=== PATIENT | female | born 1970 | race Caucasian/White ===

== ENCOUNTER 2016-12-01 07:39 | Day surgery (SDC) | END 2016-12-01 14:05 | disposition home or self-care (01) | DX: C50.912 Malignant neoplasm of unspecified site of left female breast (principal); E11.9 Type 2 diabetes mellitus without complications; I10 Essential (primary) hypertension; E78.5 Hyperlipidemia, unspecified | CPT/HCPCS: 36561; 76942; 82962; 93306; C1788; J0690; J1644; J2250; J3010; J7040; Z7610 ==

== ENCOUNTER 2017-01-31 10:26 | Emergency (ER) | payer MEDICAID ==
[~2017-01-31] VITALS: Ht 157.5 cm; Wt 63.0 kg
[~2017-01-31 10:26] MED LIST: FER325 PO; LISI10TA2 PO; METF500T4 PO; SIMV5TAB50 PO
[2017-01-31 10:27] VITALS: Ht 157.5 cm; Wt 63.0 kg
[2017-01-31] MEDS ORDERED: SOD CHLORIDE 0.9% 1,000 ML IV STA (10:37)
[2017-01-31] MEDS ORDERED: ONDANSETRON 4 MG INJ IV STA (10:37)
[2017-01-31 10:50] LABS: ADD SCAN DIFF NO
[2017-01-31 11:00] LABS: ABNORMAL IP MESSAGE 1; BASOPHILS % 0.1 % (0.0-2.0); HEMATOCRIT 34.2 % (37.0-47.0); HEMOGLOBIN 10.6 g/dl (12.0-16.0); LYMPHOCYTES # 1.5 10^3/ul (0.8-2.9); MEAN CORPUSCULAR HEMOGLOBIN 24.3 pg (29.0-33.0); MEAN CORPUSCULAR VOLUME 78.3 fl (82.0-101.0); MEAN PLATELET VOLUME 8.5 fl (7.4-10.4); MONOCYTE # 0.7 10^3/ul (0.3-0.9); MONOCYTES % 8.5 % (0.0-11.0); NEUTROPHIL # 6.1 10^3/ul (1.6-7.5); NEUTROPHILS % 71.2 % (39.0-77.0); PLATELET COUNT 172 10^3/UL (140-415); RED BLOOD COUNT 4.37 10^6/ul (4.20-5.40); RED CELL DISTRIBUTION WIDTH 25.6 % (11.5-14.5); WHITE BLOOD COUNT 8.6 10^3/ul (4.8-10.8)
[2017-01-31 11:15] LABS: ANION GAP 23 (8-16); BLOOD UREA NITROGEN 5 mg/dl (7-20); CARBON DIOXIDE 19 mmol/L (21-31); CHLORIDE 102 mmol/L (97-110); CREATININE 1.02 mg/dl (0.44-1.00); GLUCOSE 162 mg/dl (70-220); POTASSIUM 3.4 mmol/L (3.5-5.1); SODIUM 141 mmol/L (135-144)
[2017-01-31] MEDS ORDERED: POTASSIUM CHLORIDE (SR) 20 MEQ TAB PO STA (11:23)
[2017-01-31 11:31] LABS: TROPONIN-I < 0.012 ng/ml (0.00-0.12)
--- NOTE | 2017-01-31 11:47 | RADRPT ---
PROCEDURE: XR Chest. CLINICAL INDICATION: chest pain, syncope TECHNIQUE: Single frontal view of the chest was obtained COMPARISON: None FINDINGS: The heart and mediastinum are within normal limits. There is a right chest wall port in place. There is mild elevation of the right diaphragm. The lungs are clear. There is no pleural effusion or pneumothorax. RPTAT: AA IMPRESSION: No acute disease. .Alexis Humphreys MD, MD Date Time Electronically viewed and signed by .Alexis Humphreys MD, on 01/31/2017 11:46 .S/
--- NOTE | 2017-01-31 12:05 | ERD ---
ER Documentation Chief Complaint Date/Time DATE: 01/31/17 TIME: 12:05 Chief Complaint syncopial episode before getting chemotherapy HPI Patient is a 46-year-old female with breast cancer, diabetes, and hypertension who presents with a syncopal event. The patient was brought in by ambulance. The daughter says that her eyes rolled in the back of her head while she was sitting waiting to see the doctor. She felt cold all over. She was going to Dr. Alonso's office for a follow-up visit. She is not complaining of any pain. She has never had this before. She had chemotherapy last on January 17. She denies any bleeding. She had vomiting last night as well as diarrhea. Upon review of old medical records this is the patient's first visit to the emergency department. ROS All systems reviewed and are negative except as per history of present illness. Medications Home Meds Reported Medications Ferrous Sulfate* (Ferrous Sulfate*) 325 Mg Tabec, 325 MG PO BID, TAB 12/01/16 Simvastatin* (Simvastatin*) 5 Mg Tablet, 10 MG PO QHS, #30 TAB 12/01/16 Lisinopril* (Lisinopril*) 10 Mg Tablet, 10 MG PO DAILY, #30 TAB 12/01/16 Metformin Hcl* (Metformin Hcl*) 500 Mg Tablet, 500 MG PO WITH BREAKFAST DINNE, # 30 TAB 12/01/16 Allergies Allergies: Coded Allergies: No Known Allergy (Unverified , 12/01/16) PMhx/Soc History of Surgery: Yes (CHOLECYSTECTOMY) Anesthesia Reaction: No Hx Neurological Disorder: No Hx Respiratory Disorders: No Hx Cardiac Disorders: Yes (HTN) Hx Psychiatric Problems: No Hx Miscellaneous Medical Probl: Yes ( ANEMIA, LT BREAST CA ON CHEMO SINCE November ) Hx Alcohol Use: No Hx Substance Use: No Hx Tobacco Use: No Smoking Status: Never smoker FmHx Family History: diabetes Physical Exam Vitals Vital Signs Date Time Temp Pulse Resp B/P Pulse Ox O2 Delivery O2 Flow Rate FiO2 01/31/17 12:38 97.5 85 18 118/79 99 Room Air 01/31/17 10:27 97.5 93 18 117/82 97 Physical Exam Const: No acute distress Head: Atraumatic Eyes: Normal Conjunctiva ENT: Normal External Ears, Nose and Mouth. Neck: Full range of motion..~ No meningismus. Resp: Clear to auscultation bilaterally Cardio: Regular rate and rhythm, no murmurs Abd: Soft, non tender, non distended. Normal bowel sounds Skin: No petechiae or rashes Back: No midline or flank tenderness Ext: No cyanosis, or edema Neur: Awake and alert Psych: Normal Mood and Affect Result Diagram: 01/31/17 1040 01/31/17 1040 Results 24 hrs Laboratory Tests Test 01/31/17 10:40 01/31/17 11:07 White Blood Count 8.610^3/ul Red Blood Count 4.3710^6/ul Hemoglobin 10.6g/dl Hematocrit 34.2% Mean Corpuscular Volume 78.3fl Mean Corpuscular Hemoglobin 24.3pg Mean Corpuscular Hemoglobin Concent 31.0g/dl Red Cell Distribution Width 25.6% Platelet Count 18976^3/UL Mean Platelet Volume 8.5fl Neutrophils % 71.2% Lymphocytes % 17.0% Monocytes % 8.5% Eosinophils % 0.0% Basophils % 0.1% Nucleated Red Blood Cells % 0.0/100WBC Neutrophils # 6.110^3/ul Lymphocytes # 1.510^3/ul Monocytes # 0.710^3/ul Eosinophils # 0.010^3/ul Basophils # 0.010^3/ul Nucleated Red Blood Cells # 0.010^3/ul Sodium Level 141mmol/L Potassium Level 3.4mmol/L Chloride Level 102mmol/L Carbon Dioxide Level 19mmol/L Anion Gap 23 Blood Urea Nitrogen 5mg/dl Creatinine 1.02mg/dl Glucose Level 162mg/dl Calcium Level 10.0mg/dl Troponin I < 0.012ng/ml Bedside Glucose 123mg/dL Current Medications Medications (Trade) Dose Ordered Sig/Azael Route PRN Reason Start Time Stop Time Status Last Admin Dose Admin Sodium Chloride (NS) 1,000 ml @ 1,000 mls/hr Q1H STAT IV 01/31/17 10:37 01/31/17 11:36 DC 01/31/17 10:47 Ondansetron HCl (Zofran Inj) 4 mg ONCE STAT IV 01/31/17 10:37 01/31/17 10:38 DC 01/31/17 10:47 Potassium Chloride (Klor-Con 20) 40 meq ONCE STAT PO 01/31/17 11:23 01/31/17 11:24 DC 01/31/17 11:29 Procedures/MDM EKG read by me: Rate/Rhythm: Regular rate and rhythm at a rate of 99 Intervals: Normal Impression: No evidence of ischemia or arrhythmia Chest x-ray negative per radiology. Patient is a 46-year-old female with hypertension, diabetes, and breast cancer who presents with a syncopal event. The patient has anemia with a hemoglobin of 10.6 but does not require transfusion. The patient has mild hypokalemia with a potassium of 3.4. I believe the patient is dehydrated she was given 1 L of normal saline for fluid resuscitation. She was also given Zofran. There is no sign of ischemia or arrhythmia. I doubt serious cardiac arrhythmia such as ventricular fibrillation or ventricular tachycardia. I doubt significant blood loss. I believe outpatient management is appropriate. She will need to follow- up closely with her primary doctor within 24-48 hours. She can return for any worsening symptoms. Departure Diagnosis: Primary Impression: Hypokalemia Additional Impression: Syncope Syncope type: unspecified Qualified Code: R55 - Syncope, unspecified syncope type Condition: Fair Patient Instructions: Syncope, Unk Cause Referrals: Your doctor Additional Instructions: Llame al doctor MAANA y dannielle gisela MAGGIE PARA DENTRO DE 1-2 LARKIN.Dgale a la secretaria que nosotros le instruimos hacer esta maggie.Avise o llame si ly condicin se empeora antes de la maggie. Regresa aqui si peor o no mejor. CECE SALCEDO MD January 31, 2017 12:05
[2017-01-31 12:38] VITALS: BP 118/79; PULSE 85; RESP 18; TEMP 97.5
== END 2017-01-31 13:18 | disposition home or self-care (01) ==
LOC: E/R 10:26
DX: E87.6 Hypokalemia (principal); C50.912 Malignant neoplasm of unspecified site of left female breast; I10 Essential (primary) hypertension; E11.9 Type 2 diabetes mellitus without complications; Z79.84 Long term (current) use of oral hypoglycemic drugs
CPT/HCPCS: 36415; 71010; 80048; 82962; 84484; 85025; 93005; 96361; 96374; J2405; J7030; Z7502; Z7610

== ENCOUNTER 2017-05-04 08:08 | Inpatient (IN) | payer MEDICAID, OTHER ==
[2017-05-03 14:24] VITALS: Ht 152.4 cm; Wt 73.0 kg
[~2017-05-04] VITALS: Ht 152.4 cm; Wt 73.0 kg
[2017-05-04] VITALS (27 sets, daily range): BP systolic 90–122; BP diastolic 55–69; PULSE 75–98; RESP 18–27
[2017-05-04] MEDS ORDERED: SIMV10TA PO (10:16)
[2017-05-04 11:33] LABS: BASOPHILS % 0.3 % (0.0-2.0); EOSINOPHILS # 0.1 10^3/ul (0.0-0.5); EOSINOPHILS % 1.5 % (0.0-7.0); LYMPHOCYTES # 2.6 10^3/ul (0.8-2.9); MEAN CORPUSCULAR HEMOGLOBIN 28.4 pg (29.0-33.0); MEAN CORPUSCULAR HGB CONC 32.2 g/dl (32.0-37.0); MONOCYTE # 0.6 10^3/ul (0.3-0.9); NEUTROPHILS % 51.8 % (39.0-77.0); RED CELL DISTRIBUTION WIDTH 15.4 % (11.5-14.5)
[2017-05-04 11:35] LABS: HOLD TRANSMISSIONS 1; MEAN PLATELET VOLUME 11.2 fl (7.4-10.4); POSITIVE DIFF @See below
[2017-05-04 11:40] LABS: RED BLOOD COUNT 3.09 10^6/ul (4.20-5.40); WHITE BLOOD COUNT 6.3 10^3/ul (4.8-10.8)
[2017-05-04 11:41] LABS: HEMATOCRIT 27.1 % (37.0-47.0); HEMOGLOBIN 8.8 g/dl (12.0-16.0); MEAN CORPUSCULAR VOLUME 87.7 fl (82.0-101.0); PLATELET COUNT 239 10^3/UL (140-415)
[2017-05-04 11:46] LABS: INR 0.94; PROTIME 12.6 Sec (12.2-14.2)
[2017-05-04 11:47] LABS: PARTIAL THROMBOPLASTIN TIME 30.6 Sec (25.0-35.0)
[2017-05-04 11:50] LABS: ALBUMIN 4.5 g/dl (3.3-4.9); ALBUMIN/GLOBULIN RATIO 1.04; BILIRUBIN,INDIRECT 0.3 mg/dl (0-1.1); BILIRUBIN,TOTAL 0.3 mg/dl (0.2-1.3); TOTAL PROTEIN 8.8 g/dl (6.1-8.1)
[2017-05-04 11:52] LABS: CALCIUM 9.8 mg/dl (8.4-10.2); CREATININE 0.86 mg/dl (0.44-1.00); POTASSIUM 4.6 mmol/L (3.5-5.1)
[2017-05-04] MEDS ORDERED: SOD CHLORIDE 0.9% 1,000 ML IV ONE (13:00)
[2017-05-04] MEDS ORDERED: CEFAZOLIN 2 GM/50 ML (PMX) 50 ML IVPB ONE (13:30)
[2017-05-04] MEDS ORDERED: ONDANSETRON 4 MG INJ ONE (15:38)
[2017-05-04] MEDS ORDERED: CEFAZOLIN 1 GM INJ ONE (15:38)
[2017-05-04] MEDS ORDERED: LIDOCAINE 2% (SDV) 5 ML INJ ONE (15:38)
[2017-05-04] MEDS ORDERED: PROPOFOL 20 ML ONE (15:38)
[2017-05-04] MEDS ORDERED: METOCLOPRAMIDE 10 MG INJ ONE (15:38)
[2017-05-04] MEDS ORDERED: MEPERIDINE 100 MG INJ ONE (15:40)
[2017-05-04] MEDS ORDERED: LABETALOL HCL 20MG INJ IV PRN (16:00)
[2017-05-04] MEDS ORDERED: HYDROmorphONE (0.2 MG/ML) 10ML SYG IV PRN ×2 (16:00)
[2017-05-04] MEDS ORDERED: EPHEDrine SULFATE 50 MG/5 ML SYG IV PRN (16:00)
[2017-05-04] MEDS ORDERED: METOCLOPRAMIDE 10 MG INJ IV PRN ×2 (16:00→22:00)
[2017-05-04] MEDS ORDERED: OXYCODONE/ACETAMINOPHEN (5/325) TAB PO PRN ×2 (16:00)
[2017-05-04] MEDS ORDERED: MEPERIDINE 25 MG INJ IV PRN (16:00)
[2017-05-04] MEDS ORDERED: FENTAnyl 50 MCG/ML VIAL IV PRN ×3 (16:00)
[2017-05-04] MEDS ORDERED: MIDAZOLAM 1 MG/ML 2 ML INJ IV PRN (16:00)
[2017-05-04] MEDS ORDERED: ONDANSETRON 4 MG INJ IV PRN ×3 (16:00→18:00)
[2017-05-04] MEDS ORDERED: DIPHENHYDRAMINE 50 MG INJ IV PRN (16:00)
[2017-05-04] MEDS ORDERED: hydrALAzine 20 MG INJ IV PRN (16:00)
[2017-05-04] MEDS ORDERED: ISOSULFAN BLUE 1% 5 ML INJ SC ONE ×2 (16:01→16:44)
[2017-05-04] MEDS ORDERED: ACETAMINOPHEN 1000MG/100ML IV 100 ML IVPB PRN (16:30)
--- NOTE | 2017-05-04 17:21 | OPR ---
Date/Time of Note Date/Time of Note DATE: 05/04/17 TIME: 17:18 Operative Report Preoperative Diagnosis Invasive cancer left breast Postoperative Diagnosis Same Operation/Procedure Performed Left needle directed partial mastectomy and axillary dissection utilizing sentinel lymph node technique Surgeon: KYLE BEAVERS MD funeral assistant: ESTEFANI QUINTERO MD Anesthesia Type: general Estimated Blood Loss: 10 - 50 ml's Transfusion Required: no Specimens Left breast partial mastectomy specimen and sentinel lymph node with additional axillary lymph nodes Grafts/Implants: none Complications: no KYLE BEAVERS MD May 04, 2017 17:21
[2017-05-04] MEDS: INSULIN ASPART [NOVOLOG] 3 ML PEN SC SCH ×2 (18:00→20:35)
[2017-05-04] MEDS: D5W-0.45 NACL + KCL 20 MEQ 1,000 ML IV SCH (18:05)
[2017-05-04] MEDS: HYDROmorphONE (0.2 MG/ML) 10ML SYG IV PRN ×2 (18:14→18:29)
[2017-05-04] MEDS ORDERED: GLUCOSE GEL 15 GRAM TUBE PO PRN ×2 (18:30)
[2017-05-04] MEDS ORDERED: GLUCOSE GEL 15 GRAM TUBE BUCCAL PRN (18:30)
[2017-05-04] MEDS ORDERED: GLUCAGON 1 MG INJ IM PRN (18:30)
[2017-05-04] MEDS ORDERED: DEXTROSE 50% 50 ML SYRINGE IV PRN ×2 (18:30)
--- NOTE | 2017-05-04 18:38 | OPR ---
DATE OF OPERATION: 05/04/2017 PREOPERATIVE DIAGNOSIS: Invasive, cancer left breast. POSTOPERATIVE DIAGNOSIS: Invasive cancer, left breast. OPERATION PERFORMED: Needle-directed left partial mastectomy and axillary dissection utilizing sentinel lymph node technique. ANESTHESIA: General. ANESTHESIOLOGIST: Roni Tavarez MD SURGEON: Mac Alonso MD GORING CUTTER: Dr. Rogers. INDICATIONS FOR PROCEDURE: Patient is a 46-year-old female who underwent surveillance mammography and was found to have a 3 cm poorly-differentiated cancer located at the 1 o'clock location. Biopsy confirmed the diagnosis. She was also found to be HER2 positive, therefore she was referred for neoadjuvant chemotherapy. She received neoadjuvant chemotherapy and had a good response. She was counseled as to the need for surgery and the fact that she was a candidate for breast conservation surgery. She consented and was scheduled for surgery. OPERATIVE PROCEDURE: On the morning of surgery, patient was brought to [facility] where she underwent localization of the lesion performed by attending radiologist, Dr. Garza .. Subsequently, she was brought to the operating theater and placed under general anesthesia. The left breast and axillary regions were prepped and draped in usual sterile fashion. Approximately 4 mL of 1 percent Lymphazurin blue dye was then injected peritumorally. The breast was gently massaged for 12 minutes. At this point, a 4 cm incision was made in the left axillary hairline. Subcutaneous tissue was dissected with cautery down through the clavipectoral fascia. A dye-stained lymphatic was identified and traced to the sentinel node. There were several matted nodes in this area. Therefore, Dr. Alonso made a decision to perform level 1 dissection. With blunt dissection along the chest wall, the long thoracic nerve was identified and kept out of harm's way. More superiorly, the axillary vein was identified and kept out of harm's way. As the vein was dissected from medial to lateral, thoracodorsal neurovascular bundle was identified and kept out of harm's way. Node-bearing tissue between the long thoracic nerve and thoracodorsal nerve along with the sentinel node was then harvested using the LigaSure device. Intraoperative analysis performed by attending pathologist, did not reveal definite metastatic disease. Therefore, no further nodes were taken. The wound was irrigated. Minimal bleeding was controlled with cautery and a number 10-Iranian Isidoro-Man drain was then brought through the left mid axillary line. It was cut to size and laid within the axilla. It was secured in place with 2-0 nylon suture in the standard fashion. The wound was then closed with a 4-0 Vicryl in subcuticular fashion. Attention was then directed to performing the partial mastectomy. A curvilinear incision was made in the upper outer quadrant in the vicinity of the previously placed localization wire. Subcutaneous tissue was dissected with cautery. Skin edges were elevated with skin hooks and wide circumferential dissection of the tissue associated with the wire then took place, taking great care to ensure adequate margin. Specimen was then transected, oriented, and sent for permanent pathologic analysis. The wound was irrigated. Minimal bleeding was controlled with cautery. The skin was then reapproximated with a 4-0 Vicryl suture in subcuticular fashion. Dermabond was applied to both incisions. The patient tolerated procedure well. ESTIMATED BLOOD LOSS: Approximately 40 mL. COMPLICATIONS: There were no complications. The patient was transported in stable condition to the recovery room where circumferential compression dressing was applied. Dictated By: Mac Alonso MD /shea/gilbert /Document#: [id number]
[2017-05-04] MEDS: metFORMIN 500 MG TAB PO SCH (19:27)
--- NOTE | 2017-05-04 19:32 | HP ---
DATE OF ADMISSION: 05/04/2017 HISTORY OF PRESENT ILLNESS: The patient is a 46-year-old, female, with invasive cancer of the left breast. Patient also with history of hypertension, hyperlipidemia, and diabetes mellitus. The patient is status post neoadjuvant chemotherapy with good response. The patient was evaluated by Dr. Alonso in General Surgery consultation and patient was brought to the hospital and underwent left needle directed partial mastectomy and axillary dissection utilizing sentinel lymph node technique. Post procedure the patient has experienced some moderate pain and mild nausea. The patient will be admitted for further evaluation and management. PAST MEDICAL HISTORY: Per HPI. PAST SURGICAL HISTORY: Status post PermCath placement. FAMILY HISTORY: Negative for any history of breast or ovarian cancer. SOCIAL HISTORY: Patient lives at home with her family. Patient denies any tobacco use. Denies any alcohol use. Denies any illicit drug use. ALLERGIES: NO KNOWN ALLERGIES. MEDICATIONS: Lisinopril, metformin, simvastatin and ferrous sulfate. REVIEW OF SYSTEMS: Twelve point review of system is negative unless mentioned in HPI. PHYSICAL EXAMINATION: GENERAL: Well developed, obese female. Currently is lethargic, but easily arousable. The patient is examined in recovery. VITAL SIGNS: Temperature is 97.5, pulse is 75, blood pressure 106/56, respiratory 24, and oxygen saturation 98 percent on 10 L mask. HEENT: Head is atraumatic, normocephalic. Pupils equal, round, reactive to light and accommodation. Oral mucosa is pink and moist. NECK: Supple. No cervical lymphadenopathy. No thyromegaly. CHEST: Lungs clear bilaterally. There is no rhonchi, wheezes, rales noted. The patient has a right chest PermaCath. CARDIOVASCULAR: Normal S1, S2. No murmurs, gallops, clicks, rubs noted. ABDOMEN: Protuberant, soft, nondistended, nontender. Left chest status post surgery. EXTREMITIES: No edema, clubbing, cyanosis. Pulses equal bilaterally 2+. SKIN: No rash or petechia noted. NEUROLOGIC: The patient is lethargic but is easily arousable. Alert and oriented times 3. Moves all extremities. LABORATORY DATA: On admission, CBC white blood cells 6.3, hemoglobin 8.8, hematocrit 27.9, and platelets 239. Chemistry, sodium is 140, potassium 4.6, chloride 107, carbon dioxide 20, anion gap 18, BUN is 14, creatinine 0.86, glucose 108, AST 39, ALT is 47, and alkaline phosphate is 84. ASSESSMENT AND PLAN: 1. Invasive cancer of the left breast status post neoadjuvant chemotherapy, status post left needle-directed partial mastectomy and axillary dissection utilizing sentinel lymph node biopsy by Dr. Alonso. We will continue morphine and Tylenol for pain. Zofran for nausea. 2. Diabetes mellitus type 2. We will continue metformin and NovoLog and sliding scale. 3. Hypertension. The patient is currently hypotensive. Continue lisinopril. 4. Dyslipidemia, continue statin. 5. Obesity. BMI of 31.4. 6. Anemia. Continue iron supplements. 7. We will continue sequential compression device for deep venous thrombosis prophylaxis. Further recommendations based on clinical course. Plan of care discussed with Dr. Ernandez. Dictated By: Veronica Loera NP /shea/darrin /Document#: [id number]
[2017-05-04] MEDS: morphine 2 MG INJ IV PRN ×2 (20:34→23:51)
[2017-05-04] MEDS: ATORVASTATIN 10 MG TAB PO SCH (20:34)
[2017-05-04] MEDS: FERROUS SULFATE (EC) 325 MG TAB PO SCH (20:34)
[2017-05-05] MEDS: D5W-0.45 NACL + KCL 20 MEQ 1,000 ML IV SCH ×3 (01:26→16:01)
[2017-05-05] MEDS: POVIDONE IODINE 10% 28.4 GM OINT TOP SCH ×2 (01:26→08:38)
[2017-05-05] MEDS: ACCU-CHEK XX SCH (01:58)
[2017-05-05 04:00] VITALS: BP 118/63; PULSE 79; RESP 17
[2017-05-05] MEDS: morphine 2 MG INJ IV PRN ×4 (05:03→18:21)
[2017-05-05 06:00] LABS: BASOPHILS % 0.3 % (0.0-2.0); EOSINOPHILS % 0.6 % (0.0-7.0); HEMATOCRIT 24.8 % (37.0-47.0); HEMOGLOBIN 7.8 g/dl (12.0-16.0); LYMPHOCYTES % 28.8 % (15.0-51.0); MEAN CORPUSCULAR HEMOGLOBIN 27.4 pg (29.0-33.0); MEAN CORPUSCULAR HGB CONC 31.5 g/dl (32.0-37.0); MONOCYTE # 0.5 10^3/ul (0.3-0.9); MONOCYTES % 7.7 % (0.0-11.0); NEUTROPHILS % 62.3 % (39.0-77.0); PLATELET COUNT 225 10^3/UL (140-415); RED BLOOD COUNT 2.85 10^6/ul (4.20-5.40); RED CELL DISTRIBUTION WIDTH 15.3 % (11.5-14.5)
[2017-05-05 06:28] LABS: CALCIUM 8.9 mg/dl (8.4-10.2); CREATININE 0.91 mg/dl (0.44-1.00); POTASSIUM 4.1 mmol/L (3.5-5.1)
[2017-05-05 07:00] VITALS: BP 90/53; RESP 18
[2017-05-05] MEDS: INSULIN ASPART [NOVOLOG] 3 ML PEN SC SCH ×4 (07:50→20:08)
[2017-05-05] MEDS: FERROUS SULFATE (EC) 325 MG TAB PO SCH ×2 (08:37→22:06)
[2017-05-05 08:40] VITALS: BP 122/56; PULSE 77; RESP 18
[2017-05-05] MEDS: LISINOPRIL 10 MG TAB PO SCH (08:40)
[2017-05-05] MEDS: metFORMIN 500 MG TAB PO SCH ×2 (08:43→18:23)
[2017-05-05] MEDS ORDERED: SOD CHLORIDE 0.9% 250 ML IV* ONE (09:47)
--- NOTE | 2017-05-05 09:49 | PN ---
Date/Time of Note Date/Time of Note DATE: 05/05/17 TIME: 09:48 Assessment/Plan VTE Prophylaxis VTE Prophylaxis Intervention: other Lines/Catheters IV Catheter Type (from Nrs): Peripheral IV Urinary Cath still in place: No Assessment/Plan Chief Complaint/Hosp Course 1. Invasive cancer of the left breast status post neoadjuvant chemotherapy, status post left needle-directed partial mastectomy and axillary dissection utilizing sentinel lymph node biopsy by Dr. Alonso. We will continue morphine and Tylenol for pain. Zofran for nausea. 2. Diabetes mellitus type 2. We will continue metformin and NovoLog and sliding scale. 3. Hypertension. The patient is currently hypotensive. Continue lisinopril. 4. Dyslipidemia, continue statin. 5. Obesity. BMI of 31.4. 6. Anemia. Transfuse, monitor H/H 7. We will continue sequential compression device for deep venous thrombosis prophylaxis. Problems: Subjective 24 Hr Interval Summary Free Text/Dictation Patient denies any complaints Exam/Review of Systems Vital Signs Vitals Vital Signs Date Time Temp Pulse Resp B/P Pulse Ox O2 Delivery O2 Flow Rate FiO2 05/05/17 08:40 77 18 122/56 05/05/17 07:00 97.9 99 05/05/17 04:00 Room Air 05/04/17 17:55 10.0 Intake and Output 05/04/17 05/04/17 05/05/17 15:00 23:00 07:00 Intake Total 825 ml 1675 ml Output Total 15 ml 1740 ml Balance 810 ml -65 ml Exam Constitutional: well developed Head: atraumatic, normocephalic Neck: supple Respiratory: clear to auscultation Cardiovascular: regular rate and rhythm Gastrointestinal: non-tender, soft Extremities: normal pulses Results Result Diagram: 05/05/17 0455 05/05/17 0455 Results 24 hrs Laboratory Tests Test 05/04/17 10:45 05/04/17 10:47 05/04/17 17:51 05/04/17 20:35 White Blood Count 6.3 # Red Blood Count 3.09 #L Hemoglobin 8.8 L Hematocrit 27.1 #L Mean Corpuscular Volume 87.7 Mean Corpuscular Hemoglobin 28.4 L Mean Corpuscular Hemoglobin Concent 32.2 Red Cell Distribution Width 15.4 #H Platelet Count 239 # Mean Platelet Volume 11.2 #H Neutrophils % 51.8 Lymphocytes % 38.0 Monocytes % 8.0 Eosinophils % 1.5 Basophils % 0.3 Nucleated Red Blood Cells % 0.0 Neutrophils # (Manual) 4 Lymphocytes # 2.6 Monocytes # 0.6 Eosinophils # 0.1 Basophils # 0.0 Nucleated Red Blood Cells # 0.0 CBC Results Faxed/Phoned 1 *H Prothrombin Time 12.6 Prothrombin Time Ratio 1.0 INR International Normalized Ratio 0.94 Activated Partial Thromboplast Time 30.6 Sodium Level 140 Potassium Level 4.6 Chloride Level 107 Carbon Dioxide Level 20 L Anion Gap 18 H Blood Urea Nitrogen 14 Creatinine 0.86 Glucose Level 108 Calcium Level 9.8 Total Bilirubin 0.3 Direct Bilirubin 0.00 Indirect Bilirubin 0.3 Aspartate Amino Transf (AST/SGOT) 39 Alanine Aminotransferase (ALT/SGPT) 47 Alkaline Phosphatase 84 Total Protein 8.8 H Albumin 4.5 Globulin 4.30 H Albumin/Globulin Ratio 1.04 Bedside Glucose 115 141 172 Test 05/05/17 04:55 05/05/17 08:34 White Blood Count 7.0 Red Blood Count 2.85 L Hemoglobin 7.8 L Hematocrit 24.8 L Mean Corpuscular Volume 87.0 Mean Corpuscular Hemoglobin 27.4 L Mean Corpuscular Hemoglobin Concent 31.5 L Red Cell Distribution Width 15.3 H Platelet Count 225 Mean Platelet Volume 10.0 Neutrophils % 62.3 Lymphocytes % 28.8 Monocytes % 7.7 Eosinophils % 0.6 Basophils % 0.3 Nucleated Red Blood Cells % 0.0 Neutrophils # (Manual) 4 Lymphocytes # 2.0 Monocytes # 0.5 Eosinophils # 0.0 Basophils # 0.0 Nucleated Red Blood Cells # 0.0 Sodium Level 138 Potassium Level 4.1 Chloride Level 105 Carbon Dioxide Level 22 Anion Gap 15 Blood Urea Nitrogen 11 Creatinine 0.91 Glucose Level 106 Hemoglobin A1c 5.6 Calcium Level 8.9 Bedside Glucose 123 Medications Medications Current Medications Potassium Chloride/Dextrose/ Sod Cl (D5-1/2ns + KCl 20 Meq) 1,000 ml @ 125 mls/ hr Q8H IV Last administered on 05/05/17t 08:43; Admin Dose 125 MLS/HR; Start at 16:01 Morphine Sulfate 2 mg 2 mg Q1H PRN IV PAIN; Start 05/04/17 at 16:30 Acetaminophen (Ofirmev 1000mg/ 100ml Iv) 100 ml @ 400 mls/hr Q6H PRN IVPB PAIN ; Start 05/04/17 at 16:30 Ferrous Sulfate (Ferrous Sulfate (Ec)) 325 mg BID PO Last administered on 08:37; Admin Dose 325 MG; Start 05/04/17 at 21:00 Lisinopril (Zestril) 10 mg DAILY PO Last administered on 05/05/17 08:40; Admin Dose 10 MG; Start 05/05/17 at 09:00 Atorvastatin Calcium (Lipitor) 5 mg DAILY@21 PO Last administered on 05/04/17 20:34; Admin Dose 5 MG; Start 05/04/17 at 21:00 Diagnostic Test (Pha) (Accu-Chek) 1 ea 02 XX ; Start 05/05/17 at 02:00 Ondansetron HCl (Zofran Inj) 4 mg Q4 PRN IV NAUSEA AND/OR VOMITING; Start 05/04 at 18:00 Morphine Sulfate (morphine) 2 mg Q3 PRN IV SEVERE PAIN LEVEL 7-10 Last administered on 05/05/17 05:03; Admin Dose 2 MG; Start 05/04/17 at 18:00 Miscellaneous Information 1 ea NOTE XX ; Start 05/04/17 at 18:30 Glucose (Glutose) 15 gm Q15M PRN PO DECREASED GLUCOSE; Start 05/04/17 at 18:30 Glucose (Glutose) 22.5 gm Q15M PRN PO DECREASED GLUCOSE; Start 05/04/17 at 18: 30 Dextrose (D50w Syringe) 25 ml Q15M PRN IV DECREASED GLUCOSE; Start 05/04/17 at 18:30 Dextrose (D50w Syringe) 50 ml Q15M PRN IV DECREASED GLUCOSE; Start 05/04/17 at 18:30 Glucagon (Glucagen) 1 mg Q15M PRN IM DECREASED GLUCOSE; Start 05/04/17 at 18:30 Glucose (Glutose) 15 gm Q15M PRN BUCCAL DECREASED GLUCOSE; Start 05/04/17 at 18 :30 Metoclopramide HCl (Reglan) 10 mg Q6 PRN IV NAUSEA AND/OR VOMITING; Start 05/04 at 22:00 Povidone Iodine (Povidone-Iodine) 1 applic DAILY TOP Last administered on 08:38; Admin Dose 1 APPLIC; Start 05/04/17 at 23:45 KELLY RAHMAN May 05, 2017 09:49
[2017-05-05 14:00] VITALS: BP 103/55; RESP 18
[2017-05-05] MEDS ORDERED: SOD FERRIC GLUC COMPLX 125 MG in SOD CHLORIDE 0.9% 100 ML IVPB ONE (18:00)
--- NOTE | 2017-05-05 19:10 | PN ---
DATE: 05/05/2017 Status post left partial mastectomy with axillary resection of left breast, is status post operation postoperative day number 1. SUBJECTIVE: No new complaints, has been stable, started a regular diet, has been out of bed. OBJECTIVE: GENERAL: Awake, alert, and oriented x3. VITAL SIGNS: Temperature 97.3, heart rate 77, respirations 18, blood pressure 103/54, saturation 97% on room air. LABS: Chemistry within normal limits. Today's WBC 7000, hemoglobin 7.8 (8.8 on admission), hematocrit today 24.8 (27.1 on admission). PLAN: Dr. Shane, the medical colleague who was following the patient, has ordered 1 unit of packed cells blood transfusion. If she is going to take the blood transfusion, he is going to keep her overnight here. Dressing is intact. Lan bandage dressing is not too tight. Isidoro-Man is draining serosanguinous fluid, total 120 mL during operation. The patient can be discharged if she gets blood transfusion soon, or if she does not want blood transfusion, then she can be discharged home. Otherwise, we may have to keep her overnight and discharge her tomorrow. Dictated By: Gal Rodriguez MD /shea/ami /Document#: [id number]
[2017-05-05 20:03] VITALS: BP 117/65; RESP 19
[2017-05-05] MEDS: ATORVASTATIN 10 MG TAB PO SCH (22:06)
[2017-05-06 00:01] VITALS: BP 108/56; PULSE 74; RESP 17
[2017-05-06] MEDS: D5W-0.45 NACL + KCL 20 MEQ 1,000 ML IV SCH ×2 (00:01→08:01)
[2017-05-06 01:39] VITALS: BP 114/62; RESP 18
[2017-05-06] MEDS: ACCU-CHEK XX SCH (02:00)
[2017-05-06 04:00] VITALS: BP 119/58; PULSE 70; RESP 18
[2017-05-06 06:37] LABS: BASOPHILS % 0.3 % (0.0-2.0); EOSINOPHILS # 0.1 10^3/ul (0.0-0.5); EOSINOPHILS % 1.4 % (0.0-7.0); HEMATOCRIT 27.2 % (37.0-47.0); HEMOGLOBIN 8.6 g/dl (12.0-16.0); LYMPHOCYTES # 2.4 10^3/ul (0.8-2.9); LYMPHOCYTES % 36.7 % (15.0-51.0); MEAN CORPUSCULAR HEMOGLOBIN 28.3 pg (29.0-33.0); MEAN CORPUSCULAR HGB CONC 31.6 g/dl (32.0-37.0); MEAN CORPUSCULAR VOLUME 89.5 fl (82.0-101.0); MEAN PLATELET VOLUME 10.1 fl (7.4-10.4); MONOCYTE # 0.5 10^3/ul (0.3-0.9); MONOCYTES % 7.7 % (0.0-11.0); NEUTROPHILS % 53.4 % (39.0-77.0); PLATELET COUNT 235 10^3/UL (140-415); RED BLOOD COUNT 3.04 10^6/ul (4.20-5.40); RED CELL DISTRIBUTION WIDTH 15.1 % (11.5-14.5); WHITE BLOOD COUNT 6.6 10^3/ul (4.8-10.8)
[2017-05-06 07:09] LABS: CALCIUM 9.3 mg/dl (8.4-10.2); CREATININE 0.87 mg/dl (0.44-1.00); POTASSIUM 4.3 mmol/L (3.5-5.1)
[2017-05-06] MEDS: INSULIN ASPART [NOVOLOG] 3 ML PEN SC SCH (07:50)
[2017-05-06] MEDS: FERROUS SULFATE (EC) 325 MG TAB PO SCH (08:33)
[2017-05-06] MEDS: metFORMIN 500 MG TAB PO SCH (08:33)
[2017-05-06] MEDS: POVIDONE IODINE 10% 28.4 GM OINT TOP SCH (08:33)
[2017-05-06] MEDS: LISINOPRIL 10 MG TAB PO SCH (08:34)
[2017-05-06 08:39] VITALS: BP 100/50; RESP 18
[2017-05-06] MEDS: morphine 2 MG INJ IV PRN (10:17)
--- NOTE | 2017-05-06 11:34 | PN ---
Date/Time of Note Date/Time of Note DATE: 05/06/17 TIME: 11:32 Assessment/Plan VTE Prophylaxis VTE Prophylaxis Intervention: other Lines/Catheters IV Catheter Type (from Nrs): Peripheral IV Urinary Cath still in place: No Assessment/Plan Chief Complaint/Hosp Course 1. Invasive cancer of the left breast status post neoadjuvant chemotherapy, status post left needle-directed partial mastectomy and axillary dissection utilizing sentinel lymph node biopsy by Dr. Alonso. We will continue morphine and Tylenol for pain. Zofran for nausea. 2. Diabetes mellitus type 2. We will continue metformin and NovoLog and sliding scale. 3. Hypertension. The patient is currently hypotensive. Continue lisinopril. 4. Dyslipidemia, continue statin. 5. Obesity. BMI of 31.4. 6. Anemia. Transfuse, monitor H/H 7. We will continue sequential compression device for deep venous thrombosis prophylaxis. Problems: Subjective 24 Hr Interval Summary Free Text/Dictation Patient has no complaints Exam/Review of Systems Vital Signs Vitals Vital Signs Date Time Temp Pulse Resp B/P Pulse Ox O2 Delivery O2 Flow Rate FiO2 05/06/17 08:39 98.4 78 18 100/50 98 05/06/17 04:00 Room Air 05/04/17 17:55 10.0 Intake and Output 05/05/17 05/05/17 05/06/17 15:00 23:00 07:00 Intake Total 500 ml 2310 ml 480 ml Output Total 1530 ml 805 ml Balance 500 ml 780 ml -325 ml Exam Constitutional: well developed Head: atraumatic, normocephalic Neck: supple Respiratory: clear to auscultation Cardiovascular: regular rate and rhythm Gastrointestinal: non-tender, soft Extremities: normal pulses Results Result Diagram: 05/06/17 0508 05/06/17 0508 Results 24 hrs Laboratory Tests Test 05/05/17 12:02 05/05/17 17:48 05/05/17 20:03 05/06/17 05:08 Bedside Glucose 126 108 101 White Blood Count 6.6 Red Blood Count 3.04 L Hemoglobin 8.6 L Hematocrit 27.2 L Mean Corpuscular Volume 89.5 Mean Corpuscular Hemoglobin 28.3 L Mean Corpuscular Hemoglobin Concent 31.6 L Red Cell Distribution Width 15.1 H Platelet Count 235 Mean Platelet Volume 10.1 Neutrophils % 53.4 Lymphocytes % 36.7 Monocytes % 7.7 Eosinophils % 1.4 Basophils % 0.3 Nucleated Red Blood Cells % 0.0 Neutrophils # (Manual) 4 Lymphocytes # 2.4 Monocytes # 0.5 Eosinophils # 0.1 Basophils # 0.0 Nucleated Red Blood Cells # 0.0 Sodium Level 143 Potassium Level 4.3 Chloride Level 102 Carbon Dioxide Level 25 Anion Gap 20 H Blood Urea Nitrogen 12 Creatinine 0.87 Glucose Level 82 Calcium Level 9.3 Test 05/06/17 08:31 Bedside Glucose 104 Medications Medications Current Medications Potassium Chloride/Dextrose/ Sod Cl (D5-1/2ns + KCl 20 Meq) 1,000 ml @ 125 mls/ hr Q8H IV Last administered on 05/05/17 08:43; Admin Dose 125 MLS/HR; Start at 16:01 Morphine Sulfate 2 mg 2 mg Q1H PRN IV PAIN Last administered on 05/05/17 18:21 ; Admin Dose 2 MG; Start 05/04/17 at 16:30 Acetaminophen (Ofirmev 1000mg/ 100ml Iv) 100 ml @ 400 mls/hr Q6H PRN IVPB PAIN Last administered on 05/05/17 20:55; Admin Dose 400 MLS/HR; Start at 16:30 Ferrous Sulfate (Ferrous Sulfate (Ec)) 325 mg BID PO Last administered on 08:33; Admin Dose 325 MG; Start 05/04/17 at 21:00 Lisinopril (Zestril) 10 mg DAILY PO Last administered on 05/05/17 08:40; Admin Dose 10 MG; Start 05/05/17 at 09:00 Atorvastatin Calcium (Lipitor) 5 mg DAILY@21 PO Last administered on 05/05/17 22:06; Admin Dose 5 MG; Start 05/04/17 at 21:00 Diagnostic Test (Pha) (Accu-Chek) 1 ea 02 XX ; Start 05/05/17 at 02:00 Ondansetron HCl (Zofran Inj) 4 mg Q4 PRN IV NAUSEA AND/OR VOMITING; Start 05/04 at 18:00 Morphine Sulfate (morphine) 2 mg Q3 PRN IV SEVERE PAIN LEVEL 7-10 Last administered on 05/06/17 10:17; Admin Dose 2 MG; Start 05/04/17 at 18:00 Miscellaneous Information 1 ea NOTE XX ; Start 05/04/17 at 18:30 Glucose (Glutose) 15 gm Q15M PRN PO DECREASED GLUCOSE; Start 05/04/17 at 18:30 Glucose (Glutose) 22.5 gm Q15M PRN PO DECREASED GLUCOSE; Start 05/04/17 at 18: 30 Dextrose (D50w Syringe) 25 ml Q15M PRN IV DECREASED GLUCOSE; Start 05/04/17 at 18:30 Dextrose (D50w Syringe) 50 ml Q15M PRN IV DECREASED GLUCOSE; Start 05/04/17 at 18:30 Glucagon (Glucagen) 1 mg Q15M PRN IM DECREASED GLUCOSE; Start 05/04/17 at 18:30 Glucose (Glutose) 15 gm Q15M PRN BUCCAL DECREASED GLUCOSE; Start 05/04/17 at 18 :30 Metoclopramide HCl (Reglan) 10 mg Q6 PRN IV NAUSEA AND/OR VOMITING Last administered on 05/05/17 20:02; Admin Dose 10 MG; Start 05/04/17 at 22:00 Povidone Iodine (Povidone-Iodine) 1 applic DAILY TOP Last administered on 08:33; Admin Dose 1 APPLIC; Start 05/04/17 at 23:45 KELLY RAHMAN May 06, 2017 11:34
--- NOTE | 2017-05-17 11:47 | DS ---
Date/Time of Note Date/Time of Note DATE: 05/17/17 TIME: 11:45 Discharge Summary Admission/Discharge Info Admit Date/Time May 05, 2017 at 15:02 Discharge Date/Time May 06, 2017 at 11:00 Discharge Diagnosis 1. Invasive cancer of the left breast status post neoadjuvant chemotherapy, status post left needle-directed partial mastectomy and axillary dissection utilizing sentinel lymph node biopsy by Dr. Alonso. We will continue morphine and Tylenol for pain. Zofran for nausea. 2. Diabetes mellitus type 2. We will continue metformin and NovoLog and sliding scale. 3. Hypertension. The patient is currently hypotensive. Continue lisinopril. 4. Dyslipidemia, continue statin. 5. Obesity. BMI of 31.4. 6. Anemia. Transfuse, monitor H/H 7. We will continue sequential compression device for deep venous thrombosis prophylaxis. Patient Condition: Fair Consults surgery Procedures Left needle-directed partial mastectomy and axillary dissection utilizing sentinel lymph node biopsy Hx of Present Illness Patient with invasive breast cancer comes in for mastectomy and lymph node dissection. Hospital Course Patient with breast cancer comes in for mastectomy. Patient tolerated the procedure and when felt to be stable per surgery, patient was sent home. 1. Invasive cancer of the left breast status post neoadjuvant chemotherapy, status post left needle-directed partial mastectomy and axillary dissection utilizing sentinel lymph node biopsy by Dr. Alonso. We will continue morphine and Tylenol for pain. Zofran for nausea. 2. Diabetes mellitus type 2. We will continue metformin and NovoLog and sliding scale. 3. Hypertension. The patient is currently hypotensive. Continue lisinopril. 4. Dyslipidemia, continue statin. 5. Obesity. BMI of 31.4. 6. Anemia. Transfuse, monitor H/H 7. We will continue sequential compression device for deep venous thrombosis prophylaxis. Home Meds Reported Medications Simvastatin* (Zocor*) 10 Mg Tablet, 10 MG PO QHS, #30 TAB 05/04/17 Ferrous Sulfate* (Ferrous Sulfate*) 325 Mg Tabec, 325 MG PO BID, TAB 12/01/16 Lisinopril* (Lisinopril*) 10 Mg Tablet, 10 MG PO DAILY, #30 TAB 12/01/16 Metformin Hcl* (Metformin Hcl*) 500 Mg Tablet, 500 MG PO WITH BREAKFAST DINNE, # 30 TAB 12/01/16 Primary Care Provider Not On Staff Doctor KELLY RAHMAN May 17, 2017 11:47
== END 2017-05-06 11:00 | disposition home or self-care (01) | DRG 941 ==
LOC: SDS 08:08 → REC 16:03 → MS1 19:55 → SDS 20:11 → OBSVTOIN 05-05 15:02
PROVIDERS: ADMIT Surgery Surgical Oncology; ATTEND Surgery Surgical Oncology
PROC: 07B60ZX Excision of Left Axillary Lymphatic, Open Approach, Diagnostic (ICD-10-PCS; 2017-05-04)
PROC: 0HBU0ZZ Excision of Left Breast, Open Approach (ICD-10-PCS; principal; 2017-05-04 14:00)
DX: G89.18 Other acute postprocedural pain (principal); C50.912 Malignant neoplasm of unspecified site of left female breast; I10 Essential (primary) hypertension; E11.9 Type 2 diabetes mellitus without complications; D64.9 Anemia, unspecified; Z17.0 Estrogen receptor positive status [ER+]; E78.5 Hyperlipidemia, unspecified; R11.0 Nausea; E66.9 Obesity, unspecified; Z68.31 Body mass index [BMI] 31.0-31.9, adult; Z79.4 Long term (current) use of insulin
CPT/HCPCS: 80048; 80053; 82962; 83036; 84703; 85025; 85610; 85730; 86850; 86900; 86901; 86920; 87040; 87086; 88307; 88331; G0378; J0131; J0690; J1170; J1815; J2175; J2270; J2405; J2765; J2916; J3480; J7040; Q9968

== ENCOUNTER 2018-07-20 18:35 | Inpatient (IN) | END 2018-07-22 13:20 | disposition home or self-care (01) | DRG 392 ==

== ENCOUNTER 2019-04-25 07:29 | Day surgery (SDC) | payer OTHER ==
[~2019-04-25] VITALS: Ht 152.4 cm; Wt 89.9 kg
[2019-04-25] VITALS (12 sets, daily range): BP systolic 91–131; BP diastolic 50–80; PULSE 69–78; RESP 16–22; Ht 152.4 cm; Wt 89.9 kg
[~2019-04-25 07:29] MED LIST changes: +ATOR20TA38 PO; +CEFAZOLIN 2 GM/50 ML (PMX) 50 ML IVPB ONE; +FERR325T5 PO; +GLIM2TAB PO; -METF500T4 PO; +MTF1000T PO; +NERA40TA PO; +PANT40TA4 PO; +SIMV10TA PO; -SIMV5TAB50 PO; +SOD CHLORIDE 0.9% 1,000 ML IV SCH; +TRAM50TA2 PO
[2019-04-25] MEDS ORDERED: CEFAZOLIN 2 GM/50 ML (PMX) 50 ML IVPB ONE (09:00)
[2019-04-25] MEDS ORDERED: SOD CHLORIDE 0.9% 1,000 ML IV SCH (09:00)
--- NOTE | 2019-04-25 09:53 | PREAC ---
Date/Time of Note Date/Time of Note DATE: 04/25/19 TIME: 09:51 Anesthesia Eval and Record Evaluation Time Pre-Procedure Interview DATE: 04/25/19 TIME: 09:51 Age 48 Sex female NPO: 8 hrs Preoperative diagnosis s/p Port-A-Cath Planned procedure Removal of Port-A-Cath Past Medical History Past Medical History: Includes Cardio: HTN, Dyslipidemia Endo: Diabetes GI: Obesity Surgery & Anesthesia Issues No known issue Meds Anticoagulation: No Beta Tracie within 24 hr: No Reason Beta Tracie not given: Pt. not on B-Tracie Reported Medications Ferrous Sulfate (Ferrous Sulfate) 325 Mg Tablet., 325 MG PO DAILY 04/25/19 Tramadol HCl (Tramadol HCl) 50 Mg Tablet, 50 MG PO Q8H PRN for PAIN, #120 TAB 04/25/19 Lisinopril* (Lisinopril*) 10 Mg Tablet, 10 MG PO DAILY, #30 TAB 04/25/19 Glimepiride* (Glimepiride*) 2 Mg Tablet, 2 MG PO WITH BREAKFAST, TAB 04/25/19 Atorvastatin Calcium* (Atorvastatin Calcium*) 20 Mg Tablet, 20 MG PO QHS, #30 TAB 04/25/19 Metformin* (Glucophage*) 1,000 Mg Tablet, 1000 MG PO BID, #60 TAB 04/25/19 Discontinued Reported Medications Neratinib Maleate (Nerlynx) 40 Mg Tablet, 120 MG PO DAILY, TAB with food 07/21/18 Simvastatin* (Zocor*) 10 Mg Tablet, 10 MG PO QHS, #30 TAB 05/04/17 Ferrous Sulfate* (Ferrous Sulfate*) 325 Mg Tabec, 325 MG PO BID, TAB 12/01/16 Discontinued Scripts Pantoprazole* (Pantoprazole*) 40 Mg Tablet., 40 MG PO DAILY@06 for 30 Days, #30 Prov:JOCELIN LOAIZA 07/22/18 Current Medications Sodium Chloride 1,000 ml @ 75 mls/hr [id number] IV Last administered on 04/25/19at 08:51; Admin Dose 75 MLS/HR; Start 04/25/19 at 09:00; Stop 04/25/19 at 22:19 Meds reviewed: Yes Allergies Coded Allergies: No Known Allergy (Unverified , 04/25/19) Allergies Reviewed: Yes Labs/Studies Labs Reviewed: Reviewed by anesthesiologist Result Diagram: 04/25/19 0836 04/25/19 0836 Laboratory Tests 04/25/19 08:36 test: Negative Studies: ECG (n/a), CXR (n/a) Pre-procedure Exam Last vitals Vital Signs Date Temp Pulse Resp B/P (MAP) Pulse Ox O2 O2 Flow FiO2 Time Delivery Rate 04/25/19 96.8 73 16 131/80 98 08:56 (97) Airway: Adequate mouth opening, Adequate thyromental dist Mallampati: Mallampati II Teeth: Normal Lung: Normal Heart: Normal ASA Physical Status ASA physical status: 3 Emergency: None Planned Anesthetic General/MAC: ETT, LMA Planned Pain Management Parenteral pain med Pre-operative Attestations Prior to commencing anesthesia and surgery, the patient was re-evaluated, there was verification of: *The patient's identity *The results of appropriate recent lab work and preoperative vital signs *The above evaluation not changing prior to induction *Anesthetic plan, risk benefits, alternative and complications discussed with patient/family; questions answered; patient/family understands, accepts and wishes to proceed. SANG NUNEZ MD Apr 25, 2019 09:53
[2019-04-25] MEDS ORDERED: CEFAZOLIN 1 GM INJ ONE (09:56)
[2019-04-25] MEDS ORDERED: FENTAnyl 50 MCG/ML VIAL ONE (09:56)
[2019-04-25] MEDS ORDERED: PROPOFOL 20 ML ONE (09:56)
[2019-04-25] MEDS ORDERED: MIDAZOLAM 1 MG/ML 2 ML INJ ONE (09:56)
[2019-04-25] MEDS ORDERED: FENTAnyl 50 MCG/ML VIAL IV PRN ×2 (10:00)
[2019-04-25] MEDS ORDERED: OXYCODONE/ACETAMINOPHEN (5/325) TAB PO PRN (10:00)
[2019-04-25] MEDS ORDERED: DIPHENHYDRAMINE 50 MG INJ IV PRN (10:00)
[2019-04-25] MEDS ORDERED: METOCLOPRAMIDE 10 MG INJ IV PRN (10:00)
[2019-04-25] MEDS ORDERED: MEPERIDINE 25 MG INJ IV PRN (10:00)
[2019-04-25] MEDS ORDERED: ONDANSETRON 4 MG INJ IV PRN (10:00)
[2019-04-25] MEDS ORDERED: HYDROmorphONE 1 MG/5 ML IV SYRINGE IV PRN ×2 (10:00)
[2019-04-25] MEDS ORDERED: METOCLOPRAMIDE 10 MG INJ ONE (10:10)
[2019-04-25] MEDS ORDERED: ONDANSETRON 4 MG INJ ONE (10:10)
[2019-04-25] MEDS ORDERED: DEXAMETHASONE 4 MG/ML 5 ML INJ ONE (10:10)
[2019-04-25] MEDS ORDERED: LIDOCAINE 1%/EPI 30 ML INJ INJ ONE (10:25)
[2019-04-25] MEDS ORDERED: LIDOCAINE 1%/EPI 30 ML INJ ONE (10:29)
--- NOTE | 2019-04-25 10:29 | RADRPT ---
Vent Rate: 62 bpm RR Interval: 968 msec SD Interval: 171 msec QRS Duration: 94 msec QT Interval: 420 msec QTC Interval: 427 msec P-R-T [place]: 56 - 36 - 37 degrees Sinus rhythm...normal P axis, V-rate 50- 99 Electronically Signed By: Kings Aldridge
--- NOTE | 2019-04-25 10:38 | SIPON ---
Date/Time of Note Date/Time of Note DATE: 04/25/19 TIME: 10:36 Operative Report Preoperative Diagnosis History of left breast cancer need for chemotherapy port removal Postoperative Diagnosis Same Operation/Procedure Performed Removal of chemotherapy port right subclavian location Surgeon see signature line design assistant Dr Rodriguez Anesthesia: general Estimated blood loss: 0 - 10 ml's Transfusion Required none Specimen Chemotherapy port gross only Grafts/Implants none Complications none KYLE BEAVERS MD Apr 25, 2019 10:38
--- NOTE | 2019-04-25 10:56 | PAC ---
Date/Time of Note Date/Time of Note DATE: 04/25/19 TIME: 10:56 Post-Anesthesia Notes Post-Anesthesia Note Last documented vital signs Vital Signs Date Temp Pulse Resp B/P (MAP) Pulse Ox O2 O2 Flow FiO2 Time Delivery Rate 04/25/19 96.8 73 16 131/80 98 10:56 (97) Activity: WNL Respiratory function: WNL Cardiovascular function: WNL Mental status: Baseline Pain reasonably controlled: Yes Hydration appropriate: Yes Nausea/Vomiting absent: Yes SANG NUNEZ MD Apr 25, 2019 10:56
--- NOTE | 2019-04-25 10:58 | OPR ---
DATE OF OPERATION: 04/25/2019 PREOPERATIVE DIAGNOSIS: History of left breast cancer, need for chemo port removal. POSTOPERATIVE DIAGNOSIS: History of left breast cancer, need for chemo port removal. OPERATION PERFORMED: Removal of chemo port, right subclavian location. ANESTHESIA: General. ANESTHESIOLOGIST: Wenceslao Solis MD SURGEON: Mac Alonso MD APPRENTICE TECHNICIAN: Gal Quintero MD INDICATIONS FOR PROCEDURE: The patient is a 48-year-old female who I previously treated for invasive breast cancer approximately 2 years ago. She successfully completed her treatment and requested rem oval of her chemotherapy port. She consented and was scheduled for surgery. DESCRIPTION OF PROCEDURE: The patient was brought into the operating theater where she was placed un maye general endotracheal tube anesthesia. The right anterior thorax was prepped and draped in usual sterile fashion. The patient was then put in the Trendelenburg position. Previous surgical incision al scar was then reincised with 15-blade scalpel. Subcutaneous tissue was dissected with combination of sharp dissection and cautery. The port was identified. With meticulous dissection, it was disse cted free of adhesions and then gently withdrawn as pressure was held in an infraclavicular location. The port appeared grossly intact. It was sent for permanent pathologic analysis to ensure that it was intact. The wound was then irrigated. Minimal bleeding was controlled with cautery. The area w as infiltrated with 1% lidocaine local anesthetic with epinephrine, and the skin was then reapproxima killian with 4-0 Vicryl sutures in subcuticular fashion and Dermabond was applied. The patient tolerated procedure well. Estimated blood loss was 5 mL. There were no complications and the patient was tra nsported in stable condition to the recovery room. Dictated By: MAC ALONSO MD TL/NTS Conf#: [id number] DID#: [id number] CC: GAL QUINTERO MD;*EndCC*
== END 2019-04-25 12:20 | disposition home or self-care (01) ==
LOC: SDS 07:29
PROVIDERS: ATTEND Surgery Surgical Oncology
DX: Z45.2 Encounter for adjustment and management of vascular access device (principal); Z85.3 Personal history of malignant neoplasm of breast; I10 Essential (primary) hypertension; E78.5 Hyperlipidemia, unspecified; E11.9 Type 2 diabetes mellitus without complications; E66.9 Obesity, unspecified
CPT/HCPCS: 71045; 80053; 82962; 85025; 88300; 93005; J0690; J1100; J2250; J2405; J2765; J3010